=== PATIENT | male | born 1965 | race African-American/Black ===

== ENCOUNTER 2023-05-04 10:00 | Emergency (ER) | payer MEDICAID, OTHER ==
[~2023-05-04] VITALS: Ht 185.4 cm; Wt 131.8 kg
[2023-05-04 10:07] VITALS: TEMP 98.3
[2023-05-04] MEDS ORDERED: KETOROLAC TROMETHAMINE 30 MG/ML VIAL IM ONE (11:00)
[2023-05-04] MEDS ORDERED: ACET-3385 PO (11:43)
[2023-05-04 11:55] VITALS: BP 143/86; PULSE 78; RESP 18
== END 2023-05-04 12:02 | disposition home or self-care (01) ==
LOC: EMS 10:01
DX: M25.551 Pain in right hip (principal); E11.9 Type 2 diabetes mellitus without complications; I10 Essential (primary) hypertension; F17.210 Nicotine dependence, cigarettes, uncomplicated; Z88.6 Allergy status to analgesic agent; R10.31 Right lower quadrant pain
CPT/HCPCS: 99283; 73502; 96372; J1885

== ENCOUNTER 2023-07-14 06:22 | Emergency (ER) | payer OTHER ==
[~2023-07-14] VITALS: Ht 185.4 cm; Wt 150.0 kg
[~2023-07-14 06:22] MED LIST: ACET-3385 PO
[2023-07-14 06:27] VITALS: TEMP 98.3
[2023-07-14] MEDS: METHOCARBAMOL 500 MG TABLET PO ONE (07:00)
[2023-07-14] MEDS: KETOROLAC TROMETHAMINE 60 MG/2 ML VIAL IM ONE (07:01)
[2023-07-14 08:45] VITALS: BP 146/88; PULSE 104; RESP 18
[2023-07-14] MEDS ORDERED: IBUP-1492 PO (09:10)
[2023-07-14] MEDS ORDERED: METH-659 PO (09:10)
== END 2023-07-14 08:35 | disposition home or self-care (01) ==
LOC: EMS 06:44
DX: S39.011A Strain of muscle, fascia and tendon of abdomen, initial encounter (principal); E11.9 Type 2 diabetes mellitus without complications; I10 Essential (primary) hypertension; F17.210 Nicotine dependence, cigarettes, uncomplicated; Z88.6 Allergy status to analgesic agent; X58.XXXA Exposure to other specified factors, initial encounter; Y93.89 Activity, other specified; Y92.89 Other specified places as the place of occurrence of the external cause; Y99.8 Other external cause status
CPT/HCPCS: 99283; 96372; J1885